=== PATIENT | male | born 1965 | race African-American/Black ===

== ENCOUNTER 2016-12-03 18:38 | Emergency (ER) | payer SELFPAY ==
[~2016-12-03] VITALS: Ht 185.4 cm; Wt 108.0 kg
[2016-12-03 20:21] VITALS: BP 134/82
[2016-12-03] MEDS ORDERED: KETOROLAC 60MG/2ML VIAL IM ONE (21:00)
[2016-12-04] MEDS ORDERED: HYDROCODONE/ACETAMINOPHEN 5/325MG TABLET PO ONE (00:45)
== END 2016-12-04 01:08 | disposition home or self-care (01) ==
LOC: ER 18:45
DX: M17.12 Unilateral primary osteoarthritis, left knee (principal); E11.9 Type 2 diabetes mellitus without complications; I10 Essential (primary) hypertension
CPT/HCPCS: 73562; 96372; 99283; J1885

== ENCOUNTER 2018-12-20 16:08 | Emergency (ER) | payer MEDICAID, OTHER ==
[~2018-12-20] VITALS: Ht 190.5 cm; Wt 120.0 kg
[2018-12-20] MEDS ORDERED: HYDROCHLOROTHIAZIDE 25MG TABLET PO ONE (16:30)
[2018-12-20] MEDS ORDERED: INSULIN REGULAR (HUMULIN R) 300UNITS/3ML SUBCUT ONE (16:30)
[2018-12-20 17:40] VITALS: BP 148/95
== END 2018-12-20 17:52 | disposition home or self-care (01) ==
LOC: ER 16:08
DX: E11.65 Type 2 diabetes mellitus with hyperglycemia (principal); Z79.84 Long term (current) use of oral hypoglycemic drugs; I10 Essential (primary) hypertension
CPT/HCPCS: 82962; 96372; 99283; J1815